=== PATIENT | male | born 1965 | race Caucasian/White ===

== ENCOUNTER 2022-05-16 07:13 | Day surgery (SDC) | payer BC, SELFPAY ==
[2022-05-16] VITALS (7 sets, daily range): BP systolic 113–143; BP diastolic 88–119; PULSE 80–92; RESP 16–18; TEMP 36.4–36.9; O2SAT 94–97; BMI 32.7
[2022-05-16] MEDS: Lactated Ringers 1,000 ML 15 ML IV (07:56)
--- NOTE | 2022-05-16 08:40 | LES_PTH ---
PATIENT: HENNY FLORES LOC: [facility] U#:[id number] AGE/SX: 56/M ROOM: RE05/16/[address]: ALCON HuangM : 1965 BED: DIS: 05/16/2022 SPEC #: [id number] RECD: 05/16/22 10:34 STATUS: SAMI ELODIA #: [id number] DEL: 05/16/22 08:[address]: Gian Hernandez DEPT: SURGICAL PATHOLOGY RECD BY: Tasneem Roque ENTERED: 05/16/22 11:09 SP TYPE: Lesion OTHR DR: Carmen Reece, CINTHIA-Isa Tissues: Skin of foot, NOS Procedures: Surgery Specimen Level IV HEADER OPERATION: Removal benign skin lesion to plantar aspect, foot PRE-OP DIAGNOSIS: Plantar skin lesion TISSUE SUBMITTED: Skin lesion, right foot MICROSCOPIC DIAGNOSIS Skin lesion of right foot, excision: Hyperkeratosis and dermal fibrosis. No evidence of malignancy. AM:haider 05/20/2022 MICROSCOPIC DESCRIPTION Slides are reviewed. GROSS DESCRIPTION Received in fixative is one container labeled with the patient's name and designated skin lesion of right foot. The specimen consists of an ellipse of light ventura excised skin measuring 1.6 x 0.8 cm and excised to a depth of 0.9 cm. The specimen is inked, serially sectioned totally submitted in one cassette. / AM:haider 05/16/2022 TC:5 CPT: 21823
[2022-05-16] MEDS: Cefazolin 2 GM in 0.9% Normal Saline 100 ML IV (09:24)
[2022-05-16] MEDS: Bupivacaine 0.25% 30 ML Vial (09:35)
--- NOTE | 2022-05-16 09:59 | PCM.OPRPT ---
Problems Associated Problem List Diagnoses (1) Skin lesion of foot: Report of Operation Date of Procedure: 05/16/22 Pre-Operative Diagnosis: Benign skin lesion right foot Post-Operative Diagnosis: Same Surgery/Procedure Performed:: Excisional biopsy right foot benign skin lesion Description of Surgical Findings:: Adequate resection of benign skin lesion right foot. Surgeon: Gian Hernandez licensed final expense agents: None ([email or web address] [email or web address], [email or web address]) Type of Anesthesia: Local MAC Special Medications: 10 cc quarter percent Marcaine plain Specimen's removed: Benign skin lesion plantar right foot Drains: None Estimated Blood Loss (mL): Minimal Description of Procedure: Patient brought back the operating placed comfortably in the supine position on the operating room table. Patient induced under MAC anesthesia. All osseous prominences offloaded prevent any compression neuropraxia's. Right lower extremity scrubbed prepped and draped using typical aseptic manner. Sterile injection was performed to the right plantar foot skin lesion with a local be infiltration block. 10 cc quarter percent Marcaine plain. No tourniquet used. An ellipse was drawn around the 0.5 x 0.5 cm papillomatous skin lesion to the plantar right foot which is in the plantar fourth metatarsophalangeal joint sulcus. This was running longitudinally along the course of the foot. This incision was made with a #15 blade through epidermis dermis and subcutaneous tissue any bleeders were cauterized at this time any important neurovascular structures identified and protected with retraction. This lesion was excised sent to pathology for further examination the incision was flushed with copious amounts of normal sterile saline and then closed under minimal tension using simple interrupted 2-0 Prolene. Incisional site was dressed with Betadine paint Adaptic 4 x 4's Kerlix and Gautam bandage. Patient was transferred to PACU vital signs stable vascular status intact all digits for further monitoring prior to discharge. Patient tolerated procedure and anesthesia well in apparent satisfactory condition. Patient will follow up in 1 week at which time we will change his dressing and assess the incisional healing site.
== END 2022-05-16 11:28 | disposition home or self-care (01) ==
LOC: SDC 07:15 → AC 07:17
PROVIDERS: PCP Nurse Practitioner Family; Referring Provider Podiatrist; Visit Provider Podiatrist
PROC: (CPT 11420; principal; 2022-05-16 08:25)
DX: L85.9 Epidermal thickening, unspecified (principal); L90.5 Scar conditions and fibrosis of skin; I10 Essential (primary) hypertension; E78.00 Pure hypercholesterolemia, unspecified; M19.90 Unspecified osteoarthritis, unspecified site; E55.9 Vitamin D deficiency, unspecified; Z85.6 Personal history of leukemia; Z79.82 Long term (current) use of aspirin; Z79.899 Other long term (current) drug therapy
CPT/HCPCS: 11420; 00400; 88305; J7120